=== PATIENT | female | born 1975 | race Hispanic/Latino ===

== ENCOUNTER 2017-04-22 19:58 | Observation (INO) | payer MEDICAID ==
[~2017-04-22] VITALS: Ht 160 cm; Wt 91.3 kg
[~2017-04-22 19:58] MED LIST: AMOXICILLIN500 MG PO
[2017-04-22 21:30] LABS: HEMATOCRIT 38.4 % (37.0-47.0); HEMOGLOBIN 13.1 g/dl (12.0-16.0); IMMATURE GRANULOCYTES 0.3 % (0.0-1.0); MEAN CELL VOLUME 87.7 fL CALC (80.0-100.0); MEAN CORPUSCULAR HGB 29.9 pG CALC (26.0-32.0); MEAN CORPUSCULAR HGB CONC 34.1 g/L CALC (32.0-36.0); NEUT# 5.83 thou/uL (2.00-7.15); RED BLOOD COUNT 4.38 mill/uL (4.20-5.60); RED CELL DISTRI WIDTH 13.1 % (11.5-15.5)
[2017-04-22 21:42] LABS: ALBUMIN 4.3 g/dL (3.2-5.0); ALKALINE PHOSPHATASE 48 u/l (38-126); ANION GAP 19 (6-22 (CALC)); BILIRUBIN, TOTAL 0.7 mg/dL (0.0-1.4); BUN 12 mg/dL (7-17); BUN/CREATININE RATIO 17 (12-20 (CALC)); CALCIUM 9.5 mg/dL (8.4-10.2); CARBON DIOXIDE 21 mmol/l (22-30); CHLORIDE 107 mmol/l (95-108); CREATININE 0.7 mg/dL (0.5-1.0); GFR > 60 ML/MIN (>=60 (CALC)); GFR FOR AFR.AMER. > 60 ML/MIN (>=60 (CALC)); GLUCOSE 94 mg/dL (65-105); POTASSIUM 4.3 mmol/l (3.5-5.1); SGOT/AST 23 u/l (14-36); SGPT/ALT 24 u/l (9-52); SODIUM 143 mmol/l (137-146); TOTAL PROTEIN 7.4 g/dL (6.3-8.2)
[2017-04-22 21:58] LABS: BETA-HCG, QUANT(RESULT NUMBER) 4745 mIU/mL
[2017-04-23 02:30] VITALS: BP 110/63
[2017-04-23 04:00] VITALS: BP 104/63
[2017-04-23 05:45] VITALS: BP 105/55
[2017-04-23 06:14] LABS: URINE BILIRUBIN - DIPSTICK NEGATIVE (NEGATIVE); URINE BLOOD DIPSTICK TRACE-LYSED (NEGATIVE); URINE CLARITY CLEAR; URINE COLOR YELLOW; URINE GLUCOSE - DIPSTICK NEGATIVE (NEGATIVE); URINE KETONE NEGATIVE (NEGATIVE); URINE LEUK ESTERASE NEGATIVE (NEGATIVE); URINE NITRITE - DIPSTICK NEGATIVE (Negative); URINE PROTEIN - DIPSTICK NEGATIVE (NEG-TRACE); URINE SPECIFIC GRAVITY <=1.005; URINE UROBILINOGEN - DIPSTICK 0.2 E.U./dL (0.2)
[2017-04-23 06:30] VITALS: BP 108/60
[2017-04-23] MEDS ORDERED: LORTAB 5/3255 MG PO (08:32)
[2017-04-23] MEDS ORDERED: DOXYCYCL HYC100 M4 PO (08:33)
[2017-04-23] MEDS ORDERED: CYTOTEC200 MCG PO (08:35)
== END 2017-04-23 12:31 | disposition home or self-care (01) | DRG 770 ==
LOC: ED 19:58 → ED-I 23:35 → ED 23:44 → ORM 23:45 → MS2 04-23 02:30
PROVIDERS: Emergency Medicine; ADMIT Obstetrics & Gynecology; ATTEND Obstetrics & Gynecology
PROC: 10D17ZZ Extraction of Products of Conception, Retained, Via Natural or Artificial Opening (ICD-10-PCS; principal; 2017-04-23)
DX: O03.4 Incomplete spontaneous abortion without complication (principal)